=== PATIENT | female | born 1995 | race Caucasian/White ===

== ENCOUNTER 2017-05-03 13:02 | Emergency (ER) | payer OTHER ==
[~2017-05-03] VITALS: Ht 162.6 cm; Wt 60.1 kg
[2017-05-03 13:08] VITALS: TEMP 36.6; Ht 162.6 cm; Wt 60.1 kg
[2017-05-03] MEDS ORDERED: LEVO75TA PO (13:35)
[2017-05-03] MEDS ORDERED: OXCA1TAB29 PO (13:35)
--- NOTE | 2017-05-03 14:18 | DIAGNOSTIC IMAGING REPORT ---
RIGHT HAND MIN 3 VIEWS ROUTINE CLINICAL HISTORY: 21 years-old Female presenting with right hand pain, concern for fracture. TECHNIQUE: Frontal, oblique, and lateral views of the right hand were obtained. COMPARISON: None. FINDINGS: No acute fracture, subluxation, radiopaque foreign body. No soft tissue swelling is apparent. IMPRESSION: No acute osseous injury of the right hand. Electronically signed by: Rizwan Swift M.D. 05/03/2017 2:17 PM Dictated Date/Time: 05/03/2017 2:16 PM
--- NOTE | 2017-05-03 14:29 | EMERGENCY ROOM VISIT NOTE ---
ED Visit Note First contact with patient: 13:12 CHIEF COMPLAINT: Right hand injury yesterday HISTORY OF PRESENT ILLNESS: Patient is a [id number] 21-year-old female who presents emergency department for evaluation of right hand pain. She sustained a fall yesterday while tailgating, she admits to drinking alcohol. She complains of pain, primarily in the left fifth finger, radiating into the fifth metacarpal. She notes that it is swollen and bruised. She states that her roommate alesia taped her fingers together for her. She rates her pain an 8/10. REVIEW OF SYSTEMS: Review of systems as per HPI. All other systems reviewed were negative. At least 6 systems reviewed. PMH: Electronic medical records are reviewed and summarized as above/below. See Problem List. 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 She lives in an apartment with roommates. She is a smoker. PHYSICAL EXAM: Vital Signs: Reviewed Nurse's notes. CONSTITUTIONAL: Patient is a pleasant, well-appearing 21-year-old female who is awake and alert and in no acute distress. MUSCULAR skeletal: Examination of the right hand show very superficial abrasions noted on the palm. She has swelling and bruising noted in the ulnar aspect of her hand, over the fifth metacarpal, and into the fifth finger, stopping at the PIP joint. She holds the finger in flexion, but can be extended fully. There is no obvious deformity. She is tenderness over the PIP and MCP joint. Skin is otherwise intact. EMERGENCY DEPARTMENT COURSE: X-ray of the right hand shows the soft tissue swelling but no acute fractures. Long metal finger splint was applied to the fifth finger. Patient was also educated on alesia taping. Differential diagnosis includes fracture, dislocation, sprain, contusion, among others. Medication reconciliation: I attest that I have personally reviewed the patient' s current medication list. Blood pressure screening : Patient was found to have normal blood pressure on screening and does not require follow-up. RIGHT HAND MIN 3 VIEWS ROUTINE CLINICAL HISTORY: 21 years-old Female presenting with right hand pain, concern for fracture. TECHNIQUE: Frontal, oblique, and lateral views of the right hand were obtained. COMPARISON: None. FINDINGS: No acute fracture, subluxation, radiopaque foreign body. No soft tissue swelling is apparent. IMPRESSION: No acute osseous injury of the right hand. Problem List Medical Problems: (1) Hypothyroidism Status: Chronic (2) Seizure disorder Status: Chronic Current/Historical Medications Scheduled Levothyroxine Sodium (Synthroid), 75 MCG PO DAILY Oxcarbazepine (Oxtellar Xr), 1,200 MG PO HS Allergies Coded Allergies: No Known Allergies (Unverified , 05/03/17) Vital Signs Date Time Temp Pulse Resp B/P (MAP) Pulse Ox O2 Delivery O2 Flow Rate FiO2 05/03/17 14:49 72 16 114/73 98 05/03/17 13:08 36.6 87 20 121/74 99 Room Air Departure Information Impression Primary Impression: Finger sprain Referrals [facility] (PCP) Patient Instructions My [facility] Additional Instructions Ibuprofen(Motrin, Advil) may be used for fever or pain. Use 600mg every six hours as needed. Take with food. Avoid using more than 2400mg in a 24 hour period. Do not use 2400mg per day for more than three consecutive days without physician direction. Prolonged inappropriate use can lead to stomach upset or ulcers. This medication can be taken if you need to drive, work, or perform activities which may be dangerous when taking narcotic pain medication. (AND/OR) Acetaminophen(Tylenol) may be used for fever or pain. Use 1000mg every six hours as needed. Avoid using more than 3000mg in a 24 hour period. This medication can be taken if you need to drive, work, or perform activities which may be dangerous when taking narcotic pain medication. Ice compresses for 20 minutes at a time four times daily for 2-3 days. Use the metal finger splint as instructed, or alesia tape. Rest and elevate your injury. May gradually resume normal activities as your pain and swelling improved. Continue current medications. Return to the ER immediately for any numbness, tingling, severe pain, extreme swelling in the extremity or as needed. Followup with your family doctor or orthopedic surgery if no improvement in 5-7 days. Problem Qualifiers Primary Impression: Finger sprain Encounter type: initial encounter Finger: little finger Sprain of finger site: unspecified site Laterality: right Qualified Codes: S63.616A - Unspecified sprain of right little finger, initial encounter
[2017-05-03 14:49] VITALS: BP 114/73; PULSE 72; O2SAT 98
== END 2017-05-03 14:50 | disposition home or self-care (01) ==
LOC: C.EDB 13:06 → C.EDD 14:50
DX: S63.616A Unspecified sprain of right little finger, initial encounter (principal); W19.XXXA Unspecified fall, initial encounter; Y92.89 Other specified places as the place of occurrence of the external cause; E03.9 Hypothyroidism, unspecified; G40.909 Epilepsy, unspecified, not intractable, without status epilepticus; F17.210 Nicotine dependence, cigarettes, uncomplicated; Z79.899 Other long term (current) drug therapy